=== PATIENT | female | born 1950 | race Two or more races ===

== ENCOUNTER 2018-10-24 11:18 | Outpatient (CLI) | payer OTHER | END 2018-10-24 11:29 | disposition home or self-care (01) | LOC: SONOGRAMA 11:18 | DX: N20.0 Calculus of kidney (principal); I34.8 Other nonrheumatic mitral valve disorders; I37.8 Other nonrheumatic pulmonary valve disorders; I36.8 Other nonrheumatic tricuspid valve disorders; I35.0 Nonrheumatic aortic (valve) stenosis; E04.2 Nontoxic multinodular goiter; E78.2 Mixed hyperlipidemia; R94.6 Abnormal results of thyroid function studies; Z60.2 Problems related to living alone; Q44.6 Cystic disease of liver; R94.5 Abnormal results of liver function studies; K64.8 Other hemorrhoids; N28.1 Cyst of kidney, acquired; D70.8 Other neutropenia; M81.0 Age-related osteoporosis without current pathological fracture; N63.10 Unspecified lump in the right breast, unspecified quadrant; N63.20 Unspecified lump in the left breast, unspecified quadrant; Z68.1 Body mass index [BMI] 19.9 or less, adult; Z86.010 Personal history of colon polyps ==

== ENCOUNTER 2019-10-07 14:19 | Outpatient (CLI) | payer OTHER | END 2019-10-07 14:20 | disposition home or self-care (01) | LOC: SONOGRAMA 14:19 | PROVIDERS: ATTEND Urology | DX: R31.1 Benign essential microscopic hematuria (principal) ==